=== PATIENT | male | born 1985 | race Caucasian/White ===

== ENCOUNTER 2021-11-13 01:19 | Emergency (ER) | payer MEDICAID ==
[~2021-11-13] VITALS: Ht 167.6 cm; Wt 69.4 kg
[2021-11-13 01:20] VITALS: BP 145/83
--- NOTE | 2021-11-13 01:25 | NUR ---
Patient taken to bed 11.
[2021-11-13] MEDS ORDERED: DEXAMETHASONE 10 MG/ML VIAL IVP ONE (02:15)
[2021-11-13] MEDS ORDERED: ONDANSETRON 4 MG/2 ML VIAL IVP ONE (02:15)
[2021-11-13] MEDS ORDERED: cefTRIAXone 2,000 MG in DEXTROSE 5% 100 ML IV ONE (02:15)
[2021-11-13] MEDS ORDERED: NACL 0.9% 2,000 ML IV ONE (02:15)
[2021-11-13] MEDS ORDERED: CLINDAMYCIN 900 MG in DEXTROSE 5% 100 ML IV ONE (02:15)
[2021-11-13] MEDS ORDERED: MORPHINE SULFATE 2 MG/ML SYR IVP ONE (02:15)
[2021-11-13 02:39] LABS: BASOPHILS % (AUTO) 0.3 % (0.0-2.0); EOSINOPHILS # (AUTO) 0.1 K/uL (0-0.4); EOSINOPHILS % (AUTO) 0.4 % (0.0-4.0); HEMATOCRIT 40.7 % (36-52); HEMOGLOBIN 13.3 g/dL (12.0-18.0); LYMPHOCYTES # (AUTO) 1.3 K/uL (2.0-11.5); LYMPHOCYTES % (AUTO) 9.1 % (20.5-51.1); MEAN CORPUSCULAR HEMOGLOBIN 27 pg (27-31); MEAN CORPUSCULAR HGB CONC 33 g/dL (33-37); MEAN CORPUSCULAR VOLUME 82.9 fL (80-94); MONOCYTES % (AUTO) 6.6 % (1.7-9.3); NEUTROPHILS # (AUTO) 12.2 K/uL (1.8-7.7); NEUTROPHILS % (AUTO) 83.6 % (42.2-75.2); PLATELET COUNT (AUTO) 122 K/uL (140-450); RED CELL DISTRIBUTION WIDTH 13.7 % (11.6-13.7); WHITE BLOOD COUNT (AUTO) 14.6 K/uL (4.8-10.8)
[2021-11-13] MEDS ORDERED: cefTRIAXone 1,000 MG VIAL ONE (02:43)
[2021-11-13] MEDS ORDERED: cefTRIAXone 2,000 MG VIAL ONE (02:47)
[2021-11-13 02:50] LABS: ALBUMIN 3.6 g/dL (3.4-5.0); ANION GAP 15.7 (8-16); CARBON DIOXIDE 23.6 mmol/L (21-32); CREATININE 0.8 mg/dL (0.6-1.3); POTASSIUM 3.3 mmol/L (3.5-5.1); TOTAL BILIRUBIN 0.4 mg/dL (0.0-1.0)
--- NOTE | 2021-11-13 02:59 | NUR ---
PATIETN MEDICATED PER ORDERS. TOLERATED WELL.
--- NOTE | 2021-11-13 03:04 | NUR ---
SWABS COLLECTED AND WALKED TO LAB
--- NOTE | 2021-11-13 03:05 | NUR ---
20G IV CATH PLACED IN R AC . BLOOD CULTURES X2 COLLECTED
--- NOTE | 2021-11-13 03:15 | NUR ---
36YR OLD MALE BIB SELF C/O THROAT PAIN/SWELLING X4 DAYS. PAIN LEVEL 9/10. PT IS A&OX4 . SWELLING TO LEFT SIDE OF THROAT. PT STATES IT HURTS TO SWOLLOW. DENIES SOB OR CP. SP02 98% RA. 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 HOB ELEVATED. NO DISTRESS NOTED. NKDA NO MED HX
[2021-11-13] MEDS ORDERED: OSELTAMIVIR PHOSPHATE 6 MG/ML SUSPENSION PO ONE (03:35)
--- NOTE | 2021-11-13 03:44 | NUR ---
Dr. Mcallister examining patient.
--- NOTE | 2021-11-13 03:50 | NUR ---
PATIENT RESTING WITH HOB ELEVATED. PT IS PAIN FREE. RESP EVEN AND UNLABORED. PENDING CT REPORT
[2021-11-13] MEDS ORDERED: CLINDAMYCIN 900 MG/6 ML VIAL IV ONE (04:01)
--- NOTE | 2021-11-13 04:20 | NUR ---
RECEIVED REPORT FROM BELLA GANDARA, TRANSFER OF CARE AT THIS TIME
--- NOTE | 2021-11-13 06:04 | NUR ---
DR JOHNSON AT BEDSIDE
[2021-11-13] MEDS ORDERED: NAPR-54 PO (06:33)
[2021-11-13] MEDS ORDERED: AMOX1TAB8 PO (06:33)
[2021-11-13] MEDS ORDERED: ACET-10509 PO (06:33)
[2021-11-13] MEDS ORDERED: BENZOCAINE 20% 57 GM CAN MC ONE (06:35)
[2021-11-13] MEDS ORDERED: LIDOCAINE/EPI 2% 1:100000 20 ML VIAL INJ ONE (06:35)
[2021-11-13] MEDS ORDERED: TAM75 PO (06:36)
--- NOTE | 2021-11-13 07:27 | NUR ---
DR JOHNSON AT BEDSIDE FOR PROCEDURE
[2021-11-13 08:15] VITALS: BP 114/74
--- NOTE | 2021-11-13 08:15 | NUR ---
Patient discharged with v/s stable. Written and verbal after care instructions given and explained. Patient alert, oriented and verbalized understanding of instructions. Ambulatory with steady gait. All questions addressed prior to discharge. ID band removed. Patient advised to follow up with PMD. Rx of TAMIFLU, AMOX-CLAV [id number], NAPROXEN, TYLENIL EXTRA STRENGTH given. Patient educated on indication of medication including possible reaction and side effects. Opportunity to ask questions provided and answered.
== END 2021-11-13 08:15 | disposition home or self-care (01) ==
LOC: MED 01:19
DX: J36 Peritonsillar abscess (principal); Z20.822 Contact with and (suspected) exposure to COVID-19
CPT/HCPCS: 36415; 42700; 70491; 80053; 83605; 85025; 87040; 87426; 87804; 96365; 96367; 96375; 99285; J0696; J1100; J2270; J2405; J3490; J7030; Q9967; J2001

== ENCOUNTER 2022-09-25 02:05 | Emergency (ER) | payer MEDICAID ==
[~2022-09-25] VITALS: Ht 162.6 cm; Wt 70.3 kg
[~2022-09-25 02:05] MED LIST: ACET-10509 PO; AMOX1TAB8 PO; NAPR-54 PO; TAM75 PO
[2022-09-25 02:21] VITALS: BP 143/93; PULSE 59; RESP 20; TEMP 97.9; O2SAT 99
--- NOTE | 2022-09-25 02:30 | NUR ---
PT AMBULATED TO ER BED 3
--- NOTE | 2022-09-25 02:32 | NUR ---
to restroom for urine
--- NOTE | 2022-09-25 02:42 | NUR ---
DAUGHTER [employer]HANG MOTHER AT THE BEDSIDE
[2022-09-25] MEDS ORDERED: KETOROLAC 30 MG/ML VIAL IM ONE (03:05)
[2022-09-25 03:20] LABS: APPEARANCE,URINE CLEAR (CLEAR); BILIRUBIN,URINE NEGATIVE (NEGATIVE); BLOOD, URINE NEGATIVE (NEGATIVE); COLOR,URINE YELLOW (YELLOW); LEUKOCYTE ESTERASE ,URINE NEGATIVE (NEGATIVE); NITRITE, URINE NEGATIVE (NEGATIVE); UGLUCOSE NEGATIVE (NEGATIVE)
[2022-09-25 03:24] LABS: BASOPHILS % (AUTO) 0.4 % (0.0-2.0); EOSINOPHILS # (AUTO) 0.3 K/uL (0-0.4); EOSINOPHILS % (AUTO) 2.7 % (0.0-4.0); HEMATOCRIT 40.7 % (36-52); HEMOGLOBIN 13.4 g/dL (12.0-18.0); LYMPHOCYTES # (AUTO) 2.8 K/uL (2.0-11.5); LYMPHOCYTES % (AUTO) 29.6 % (20.5-51.1); MEAN CORPUSCULAR HEMOGLOBIN 27 pg (27-31); MEAN CORPUSCULAR HGB CONC 33 g/dL (33-37); MEAN CORPUSCULAR VOLUME 82.9 fL (80-94); MONOCYTES # (AUTO) 0.7 K/uL (0.8-1.0); MONOCYTES % (AUTO) 7.2 % (1.7-9.3); NEUTROPHILS # (AUTO) 5.8 K/uL (1.8-7.7); NEUTROPHILS % (AUTO) 60.1 % (42.2-75.2); PLATELET COUNT (AUTO) 87 K/uL (140-450); RED BLOOD CELL COUNT(AUTO) 4.92 MIL/uL (4.20-6.10); RED CELL DISTRIBUTION WIDTH 14.1 % (11.6-13.7); WHITE BLOOD COUNT (AUTO) 9.6 K/uL (4.8-10.8)
[2022-09-25 03:35] LABS: ALBUMIN 3.7 g/dL (3.4-5.0); ANION GAP 11.6 (8-16); CREATININE 0.7 mg/dL (0.6-1.3); POTASSIUM 3.6 mmol/L (3.5-5.1); TOTAL BILIRUBIN 0.4 mg/dL (0.0-1.0)
--- NOTE | 2022-09-25 04:33 | NUR ---
Ultrasound at bedside.
[2022-09-25] MEDS ORDERED: ONDA-188 SL (05:30)
[2022-09-25] MEDS ORDERED: IBUP-2213 PO (05:30)
[2022-09-25 05:47] VITALS: BP 135/90; PULSE 60; RESP 20; TEMP 97.9; O2SAT 99
--- NOTE | 2022-09-25 05:47 | NUR ---
Patient discharged with v/s stable. Written and verbal after care instructions given and explained. Patient alert, oriented and verbalized understanding of instructions. Ambulatory with steady gait. All questions addressed prior to discharge. ID band removed. Patient advised to follow up with PMD. Rx of IBUPROFEN AND ZOFRAN given. Patient educated on indication of medication including possible reaction and side effects. Opportunity to ask questions provided and answered.
== END 2022-09-25 05:47 | disposition home or self-care (01) ==
LOC: MED 02:05
DX: K80.50 Calculus of bile duct without cholangitis or cholecystitis without obstruction (principal); K80.20 Calculus of gallbladder without cholecystitis without obstruction; Z79.899 Other long term (current) drug therapy
CPT/HCPCS: 36415; 76705; 80053; 81003; 83690; 85025; 96372; 99285; J1885; Q0092

== ENCOUNTER 2022-10-03 00:35 | Observation (INO) | payer MEDICAID ==
[~2022-10-03] VITALS: Ht 165.1 cm; Wt 70.3 kg
[~2022-10-03 00:35] MED LIST changes: +IBUP-2213 PO; +ONDA-188 SL
[2022-10-03 01:18] VITALS: BP 139/96; PULSE 64; RESP 20; TEMP 97.4; O2SAT 97
[2022-10-03] MEDS ORDERED: ONDANSETRON 4 MG/2 ML VIAL IVP ONE (04:15)
[2022-10-03] MEDS ORDERED: MORPHINE SULFATE 4 MG/ML SYR IVP ONE (04:15)
[2022-10-03] MEDS ORDERED: NACL 0.9% 1,000 ML IV ONE (04:15)
[2022-10-03 04:51] LABS: APPEARANCE,URINE CLEAR (CLEAR); BILIRUBIN,URINE NEGATIVE (NEGATIVE); BLOOD, URINE NEGATIVE (NEGATIVE); COLOR,URINE YELLOW (YELLOW); LEUKOCYTE ESTERASE ,URINE NEGATIVE (NEGATIVE); NITRITE, URINE NEGATIVE (NEGATIVE); PROTEIN,URINE NEGATIVE (NEGATIVE); UGLUCOSE NEGATIVE (NEGATIVE); UROBILINOGEN,URINE 0.2 EU/dL (0.2 - 1)
[2022-10-03 05:16] LABS: BASOPHILS % (AUTO) 0.3 % (0.0-2.0); EOSINOPHILS # (AUTO) 0.2 K/uL (0-0.4); EOSINOPHILS % (AUTO) 1.6 % (0.0-4.0); HEMATOCRIT 42.6 % (36-52); HEMOGLOBIN 13.9 g/dL (12.0-18.0); LYMPHOCYTES # (AUTO) 3.1 K/uL (2.0-11.5); LYMPHOCYTES % (AUTO) 31.5 % (20.5-51.1); MEAN CORPUSCULAR HEMOGLOBIN 27 pg (27-31); MEAN CORPUSCULAR HGB CONC 33 g/dL (33-37); MEAN CORPUSCULAR VOLUME 83.5 fL (80-94); MONOCYTES # (AUTO) 0.6 K/uL (0.8-1.0); MONOCYTES % (AUTO) 6.4 % (1.7-9.3); NEUTROPHILS # (AUTO) 5.9 K/uL (1.8-7.7); NEUTROPHILS % (AUTO) 60.2 % (42.2-75.2); PLATELET COUNT (AUTO) 97 K/uL (140-450); RED BLOOD CELL COUNT(AUTO) 5.11 MIL/uL (4.20-6.10); RED CELL DISTRIBUTION WIDTH 14.4 % (11.6-13.7); WHITE BLOOD COUNT (AUTO) 9.7 K/uL (4.8-10.8)
[2022-10-03 05:37] LABS: ALBUMIN 3.7 g/dL (3.4-5.0); CALCIUM 8.5 mg/dL (8.5-10.1); CARBON DIOXIDE 28.8 mmol/L (21-32); CREATININE 0.8 mg/dL (0.6-1.3); POTASSIUM 3.8 mmol/L (3.5-5.1); TOTAL BILIRUBIN 0.5 mg/dL (0.0-1.0); TOTAL PROTEIN, SERUM 6.9 g/dL (6.4-8.2)
[2022-10-03 05:44] LABS: LACTIC ACID 0.8 mmol/L (0.4-2.0)
[2022-10-03] MEDS ORDERED: MORPHINE SULFATE 2 MG/ML SYR IVP PRN (07:40)
[2022-10-03] MEDS ORDERED: HYDROcodone/APAP 5/325 MG 1 TAB TAB PO PRN (07:40)
[2022-10-03] MEDS ORDERED: cefTRIAXone 1,000 MG VIAL ONE (09:24)
[2022-10-03 09:50] VITALS: BP 113/67; PULSE 45; RESP 18; TEMP 97.6; O2SAT 99
[2022-10-03 10:05] VITALS: PULSE 84; RESP 18; O2SAT 98
[2022-10-03 16:00] VITALS: BP 98/54; PULSE 54; PULSE 65; RESP 18; TEMP 97.6; O2SAT 100
[2022-10-03 17:44] VITALS: BP 113/67; PULSE 45; RESP 18; TEMP 98.3
== END 2022-10-03 18:20 | disposition home or self-care (01) ==
LOC: MED 00:35 → MMU 07:59 → MTU 09:18
PROVIDERS: ADMIT Student in an Organized Health Care Education/Training Program; ATTEND Student in an Organized Health Care Education/Training Program
DX: K80.00 Calculus of gallbladder with acute cholecystitis without obstruction (principal); D69.6 Thrombocytopenia, unspecified; F17.210 Nicotine dependence, cigarettes, uncomplicated
CPT/HCPCS: 36415; 76705; 80053; 81003; 83605; 83690; 85025; 87040; 87081; 96361; 96365; 96375; 99285; G0378; J0696; J2270; J2405; J7060; Q0092

== ENCOUNTER 2023-08-28 16:29 | Emergency (ER) | payer MEDICAID, OTHER ==
[~2023-08-28] VITALS: Ht 167.6 cm; Wt 76.2 kg
[~2023-08-28 16:29] MED LIST changes: -ACET-10509 PO; -AMOX1TAB8 PO; -NAPR-54 PO; -ONDA-188 SL; -TAM75 PO
[2023-08-28 16:52] VITALS: BP 127/70; PULSE 84; RESP 18; TEMP 98.4; O2SAT 99
[2023-08-28 17:52] LABS: APPEARANCE,URINE CLEAR (CLEAR); BILIRUBIN,URINE NEGATIVE (NEGATIVE); BLOOD, URINE NEGATIVE (NEGATIVE); COLOR,URINE YELLOW (YELLOW); LEUKOCYTE ESTERASE ,URINE NEGATIVE (NEGATIVE); NITRITE, URINE NEGATIVE (NEGATIVE); PROTEIN,URINE NEGATIVE (NEGATIVE); UGLUCOSE NEGATIVE (NEGATIVE); UROBILINOGEN,URINE 0.2 EU/dL (0.2 - 1)
[2023-08-28 18:01] VITALS: TEMP 98.2
[2023-08-28 19:08] LABS: BASOPHILS % (AUTO) 0.6 % (0.0-2.0); EOSINOPHILS # (AUTO) 0.2 K/uL (0-0.4); EOSINOPHILS % (AUTO) 2.9 % (0.0-4.0); HEMATOCRIT 42.4 % (36-52); HEMOGLOBIN 13.8 g/dL (12.0-18.0); LYMPHOCYTES % (AUTO) 37.9 % (20.5-51.1); MEAN CORPUSCULAR HEMOGLOBIN 27 pg (27-31); MEAN CORPUSCULAR HGB CONC 33 g/dL (33-37); MONOCYTES # (AUTO) 0.7 K/uL (0.8-1.0); MONOCYTES % (AUTO) 8.5 % (1.7-9.3); NEUTROPHILS % (AUTO) 50.1 % (42.2-75.2); PLATELET COUNT (AUTO) 99 K/uL (140-450); RED BLOOD CELL COUNT(AUTO) 5.04 MIL/uL (4.20-6.10); RED CELL DISTRIBUTION WIDTH 14.3 % (11.6-13.7); WHITE BLOOD COUNT (AUTO) 7.9 K/uL (4.8-10.8)
[2023-08-28 19:14] LABS: ANION GAP 12.5 (8-16); CARBON DIOXIDE 26.3 mmol/L (21-32); CREATININE 0.7 mg/dL (0.6-1.3); POTASSIUM 3.8 mmol/L (3.5-5.1)
[2023-08-28 20:47] VITALS: BP 119/70; PULSE 70; RESP 14; O2SAT 97; O2SAT 98
== END 2023-08-28 22:05 | disposition home or self-care (01) ==
LOC: MED 16:29
DX: N43.3 Hydrocele, unspecified (principal); Z79.1 Long term (current) use of non-steroidal anti-inflammatories (NSAID)
CPT/HCPCS: 36415; 76870; 80048; 81003; 85025; 87491; 99284; Q0092